=== PATIENT | male | born 1965 | race Caucasian/White ===

== ENCOUNTER 2018-11-20 21:36 | Emergency (ER) | payer BC ==
[2018-11-20 22:00] VITALS: BP 139/79
[2018-11-20] MEDS ORDERED: Ondansetron ODT TAB* 4 MG PO ONE (22:08)
--- NOTE | 2018-11-20 22:20 | UC ---
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 6-7 episodes of vomiting/ and same number of diarrhea no CP or SOB - History of Current Complaint Chief Complaint: UCGeneralIllness Stated Complaint: VOMITING, DIARRHEA, SINUS COMPLAINT Time Seen by Provider: 11/20/18 21:52 Hx Obtained From: Patient Onset/Duration: Sudden Onset, Lasting Hours Timing: Constant Severity Initially: Mild Severity Currently: Moderate Pain Intensity: 4 Pain Scale Used: 0-10 Numeric Character: Cough: Nonproductive Aggravating Factors: Nothing Alleviating Factors: Nothing Associated Signs And Symptoms: Positive: Fever, Chills, Dizziness, URI, Nasal Congestion, Sinus Discomfort. Negative: Wheezing, Hemoptysis, Calf Pain, Calf Swelling, Edema - Allergies/Home Medications Allergies/Adverse Reactions: Allergies Allergy/AdvReac Type Severity Reaction Status Date / Time bee venom protein (honey bee) Allergy Unknown Swelling Verified 11/20/18 21:50 MS Bee Venom [Bee Venom] Allergy Swelling Verified 12/16/15 09:48 Home Medications: Home Medications Atorvastatin* [Lipitor*] 10 mg PO DAILY 11/20/18 [History Confirmed 11/20/18] Chlorphen/Phenyleph/Dm/Aspirin [[place] Plus Cold &] 1 tab PO PRN 11/20/18 [History] Cholecalciferol TAB* [Vitamin D TAB*] 1,000 unit PO DAILY 11/20/18 [History Confirmed 11/20/18] guaiFENesin ER TAB [Mucinex*] 600 mg PO BID PRN 11/20/18 [History Confirmed ] guaiFENesin LIQ* [Robitussin*] 10 ml PO Q4H PRN 11/20/18 [History Confirmed ] PMH/Surg Hx/FS Hx/Imm Hx Previously Healthy: Yes Endocrine History: Dyslipidemia - Surgical History Surgical History: Yes Surgery Procedure, Year, and Place: HERNIA REPAIR-UNKNOWN. NASAL REPAIR 20 YEARS AGO. testicular MASS REMOVAL. SPINAL SURGERY AUGUST 2018 - Family History Known Family History: Positive: Cardiac Disease - Social History Alcohol Use: Weekly Alcohol Amount: COUPLE BEERS A WEEK Substance Use Type: None Smoking Status (MU): Never Smoked Tobacco Have You Smoked in the Last Year: No Review of Systems All Other Systems Reviewed And Are Negative: Yes Constitutional: Positive: Fever, Chills, Fatigue ENT: Positive: Nasal Discharge, Sinus Congestion, Sinus Pain/Tenderness Respiratory: Positive: Cough Gastrointestinal: Positive: Vomiting, Diarrhea, Nausea Motor: Positive: Negative Neurovascular: Positive: Negative Musculoskeletal: Positive: Myalgia Neurological: Positive: Headache Physical Exam Triage Information Reviewed: Yes Appearance: No Pain Distress, Well-Nourished Vital Signs: Initial Vital Signs Temp 100.5 F 11/20/18 21:53 Pulse 115 11/20/18 21:53 Resp 18 11/20/18 21:53 BP 139/79 11/20/18 21:53 Pulse Ox 99 11/20/18 21:53 Vital Signs Reviewed: Yes Eyes: Positive: Conjunctiva Clear ENT: Positive: Hearing grossly normal, Pharyngeal erythema, Nasal congestion, Nasal drainage, TMs normal, Uvula midline. Negative: Tonsillar swelling, Tonsillar exudate, Trismus, Muffled voice, Hoarse voice, Sinus tenderness Dental Exam: Normal Neck: Positive: Supple, Nontender, No Lymphadenopathy Respiratory: Positive: Lungs clear, Normal breath sounds, No respiratory distress, No accessory muscle use Cardiovascular: Positive: RRR, No Murmur, Tachycardia Abdomen Description: Positive: Nontender, No Organomegaly, Soft. Negative: CVA Tenderness (R), CVA Tenderness (L) Bowel Sounds: Positive: Present Musculoskeletal: Positive: ROM Intact, No Edema Neurological: Positive: Alert, Muscle Tone Normal Psychological Exam: Normal Skin Exam: Normal Diagnostics - Radiology No standard instances Radiology Interpretation Completed By: ED Physician Summary of Radiographic Findings: NAD Respiratory Course/Dx - Course Course Of Treatment: influenza - I spoke to ER Provider at [facility] ER I suggested he go to the ER declines EMS transfer - Differential Dx/Diagnosis Provider Diagnosis: Influenza-like illness Discharge ED - Sign-Out/Discharge Documenting (check all that apply): Patient Departure All imaging exams completed and their final reports reviewed: No - Discharge Plan Condition: Stable Disposition: HOME-RECOMMEND TO ED Referrals: Jessie Grimaldo MD [Primary Care Provider] - Additional Instructions: influenza test (-) I spoke to [facility] ER they are expecting you I suggest you go there from here Take copy of XR - Billing Disposition and Condition Condition: STABLE Disposition: Home-Recommend to ED
[2018-11-20 22:31] LABS: Influenza A Molecular NEGATIVE (Negative); Influenza B Molecular NEGATIVE (Negative)
--- NOTE | 2018-11-21 08:27 | UC ---
- Progress Note Progress Note: chest xray report : IMPRESSION: No active cardiopulmonary disease is noted. Course/Dx - Diagnoses Provider Diagnoses: Influenza-like illness Discharge ED - Sign-Out/Discharge Documenting (check all that apply): Patient Departure All imaging exams completed and their final reports reviewed: Yes - Discharge Plan Condition: Stable Disposition: HOME-RECOMMEND TO ED Referrals: Jessie Grimaldo MD [Primary Care Provider] - Additional Instructions: influenza test (-) I spoke to [facility] ER they are expecting you I suggest you go there from here Take copy of XR - Billing Disposition and Condition Condition: STABLE Disposition: Home-Recommend to ED
== END 2018-11-20 22:42 | disposition home health service (06) ==
LOC: UCCORT 21:36
DX: R11.10 Vomiting, unspecified (principal); M79.10 Myalgia, unspecified site; R42 Dizziness and giddiness; R50.9 Fever, unspecified; R09.81 Nasal congestion; E78.5 Hyperlipidemia, unspecified; Z91.030 Bee allergy status; Z79.899 Other long term (current) drug therapy
CPT/HCPCS: 71046; 99212; A9270-GY; G0463